=== PATIENT | female | born 1990 | race Caucasian/White ===

== ENCOUNTER 2017-05-08 06:03 | Inpatient (IN) | payer BC, MEDICAID ==
[2017-05-08] MEDS ORDERED: Oxytocin/Lactated Ringers 10 UNIT/1,000 ML BAG IV ONE (08:02)
[2017-05-08] MEDS ORDERED: Nalbuphine 20 MG/1 ML Amp ONE (08:02)
[2017-05-08] MEDS ORDERED: Sodium Chloride 0.9% 10 ML Syringe FLUSH PRN (08:07)
[2017-05-08] MEDS ORDERED: Nalbuphine 20 MG/1 ML Amp IVPUSH ONE (08:14)
[2017-05-08] MEDS ORDERED: Lactated Ringers 1,000 ML IV SCH (08:15)
[2017-05-08] MEDS ORDERED: Oxytocin/Lactated Ringers 10 UNIT/1,000 ML BAG IV SCH (08:15)
--- NOTE | 2017-05-08 08:16 | PCM.LDHP ---
L&D History of Present Illness - General Date of Service: 05/08/17 Admit Problem/Dx: Patient Status Order with Admit Dx/Problem 05/08/17 08:07 Patient Status [ADT] Routine Admission Diagnosis/Problem Admission Diagnosis/Problem 05/08/17 08:11 26 yo at 40 weeks 2 days gestation presents in active labor. Contractions started at 0300. she has had good movement. no vaginal bleeding. no leakage of fluid. uncomplicated care. gbs negative std negative O negative Source of Information: Patient - History of Present Illness Location, : Reports: Abdomen Quality: Reports: Pressure Severity: Moderate Improves with: Reports: None Worsens with: Reports: None Associated Symptoms: Denies: vaginal bleeding, vaginal tissue, vaginal discharge - Related Data Allergies/Adverse Reactions: Allergies Allergy/AdvReac Type Severity Reaction Status Date / Time No Known Allergies Allergy Verified 05/08/17 08:06 Home Medications: Home Meds PNV95/Ferrous Fumarate/FA [ Tablet] 1 tab PO DAILY 05/08/17 [History] Past Medical History Hematologic History: Reports: Anemia - Past Surgical History Other Surgical History Comment: wisdom teeth extraction Social & Family History - Family History Cardiac: Reports: Hypertension Neurological: Reports: CVA Psychiatric: Reports: Depression Endocrine/Metabolic: Reports: Diabetes, type II Oncologic: Reports: Lung - Tobacco Use Smoking Status *Q: Never Smoker - Living Situation & Occupation Living situation: Reports: Single, Other (lives with significant other/father of baby) Occupation: Employed H&P Review of Systems - Review of Systems: Review Of Systems: See Below General: Reports: No Symptoms HEENT: Reports: No Symptoms Pulmonary: Reports: No Symptoms Cardiovascular: Reports: No Symptoms Gastrointestinal: Reports: No Symptoms, Abdominal Pain Genitourinary: Reports: No Symptoms Musculoskeletal: Reports: No Symptoms Skin: Reports: No Symptoms Psychiatric: Reports: No Symptoms Neurological: Reports: No Symptoms Hematologic/Lymphatic: Reports: No Symptoms Immunologic: Reports: No Symptoms L&D Exam - Exam Exam: See Below - Vital Signs Weight: 73.482 kg - OB Specific Contraction Frequency (min): 3 Contraction Intensity: Moderate to Strong Movement: Active Heart Tones: Present Heart Tones per Min: 130 Heart Rate (FHR) Variability: Moderate (6-25 bmp) Presentation: Vertex Estimated Weight: 3250 grams - Fierro Score Fierro Score Cervix Position: Anterior Fierro Score Consistency: Soft Fierro Score Effacement: >80% Fierro Score Dilation: > 5 cm Fierro Score Infant's Station: -1 ,0 Fierro Score Total: 12 - Exam General: Alert, Oriented HEENT: PERRLA Lungs: Normal Respiratory Effort Cardiovascular: Regular Rate, Regular Rhythm GI/Abdominal Exam: Normal Bowel Sounds, Soft, Non-Tender Rectal Exam: Normal Exam, Normal Rectal Tone Genitourinary: Normal external exam Back Exam: Normal Inspection Extremities: Normal Inspection, No Pedal Edema Skin: Warm, Dry, Intact Psychiatric: Alert, Normal Affect, Normal Mood Problem List Initiated/Reviewed/Updated: Yes Orders Last 24hrs: Active Orders 24 hr Category Date Time Status Patient Status [ADT] Routine ADT 05/08/17 08:07 Ordered Activity as Tolerated [RC] PFP Care 05/08/17 08:07 Ordered Communication Order [RC] ASDIRECTED Care 05/08/17 08:07 Ordered Heart Tones [RC] ASDIRECTED Care 05/08/17 08:08 Ordered Notify Provider [RC] PFP Care 05/08/17 08:07 Ordered Notify Provider [RC] PRN Care 05/08/17 08:07 Ordered Peripheral IV Care [RC] . DIRECTED Care 05/08/17 08:08 Ordered Vital Signs [RC] PER UNIT ROUTINE Care 05/08/17 08:07 Ordered Nothing Per Oral Diet [DIET] Diet 05/08/17 Breakfast Ordered Lactated Ringers [Ringers, Lactated] 1,000 ml Med 05/08/17 08:15 Ordered IV ASDIRECTED Lidocaine 1% [Xylocaine 1%] Med 05/08/17 08:07 Once 50 ml INJECT ONETIME ONE Oxytocin/Lactated Ringers [Pitocin in LR 10 Units/1,000 Med 05/08/17 08:15 Ordered ML] 10 unit in 1,000 ml IV .CONTINUOUS Sodium Chloride 0.9% [Saline Flush] Med 05/08/17 08:07 Ordered 10 ml FLUSH ASDIRECTED PRN Electronic Heart Tones Ext w TOCO [WOMSER] Oth 05/08/17 08:07 Ordered Routine Electronic Heart Tones Internal [WOMSER] Per Unit Oth 05/08/17 08:07 Ordered Routine Peripheral IV Insertion Adult [OM.PC] Routine Oth 05/08/17 08:07 Ordered Resuscitation Status Routine Resus Stat 05/08/17 08:07 Ordered Assessment/Plan Comment:: 26 yo at 40 weeks 2 days gestation in active labor Plan: Pt does not desire epidural SROM at 0800 with clear fluid expectant management GBS negative.
[2017-05-08] MEDS ORDERED: Lidocaine 1% 50 ML MDV ONE (08:18)
[2017-05-08] MEDS ORDERED: Witch Hazel Medicated Pads 100/Jar TOP PRN (10:23)
[2017-05-08] MEDS ORDERED: Ibuprofen 600 MG Tab PO PRN (10:23)
[2017-05-08] MEDS ORDERED: Benzocaine/Menthol 20%-0.5% Spray 56 GM Canister TOP PRN (10:24)
[2017-05-08] MEDS ORDERED: Lidocaine 1% 50 ML MDV INJECT ONE (11:00)
[2017-05-08] MEDS ORDERED: Docusate Sodium 100 MG Cap PO PRN (12:09)
--- NOTE | 2017-05-08 12:15 | PCM.SN ---
- Free Text/Narrative Note: 26 yo g2 now P2 delivered viable female at 40 weeks and 2 days gestation at 0935AM on 05/08/17 via spontaneous vaginal delivery over an intact perineum. There was a nuchal cord x 1 which was reduced over the head. Apgars 7 and 9. Mother O negative and GBS negative. Nubain IV anesthesia. and mother in stable condition.
[2017-05-08] MEDS ORDERED: Prenatal Multivitamin with Calcium/Folic Acid/Iron Tab PO SCH (12:30)
[2017-05-09 03:54] VITALS: BP 106/57
--- NOTE | 2017-05-09 07:54 | PCM.DCSUM1 ---
Discharge Summary - Hospital Course Free Text/Narrative:: 26 yo ppd #1. S/p normal vaginal delivery without complications. female (Corie) 7lbs 11 ounces 7 and 9 received rhogam. tolerating diet and activity pain controlled. lochia normal. desires control, was planning for tubal ligation Plan for with iron on discharge for anemia follow up with vimal in 8 weeks. clinic recommended - Discharge Data Discharge Date: 05/09/17 Discharge Disposition: Home, Self-Care 01 Condition: Good - Discharge Diagnosis/Problem(s) (1) Vaginal delivery SNOMED Code(s): 717856604 ICD Code: O80 - ENCOUNTER FOR FULL-TERM UNCOMPLICATED DELIVERY Status: Acute Current Visit: Yes - Patient Instructions Diet: Usual Diet as Tolerated Activity: As Tolerated, No Lifting Over 20 Pounds Driving: May Drive Today Showering/Bathing: May Shower Notify Provider of: Fever, Increased Pain, Swelling and Redness, Drainage, Nausea and/or Vomiting - Discharge Plan Home Medications: Home Meds PNV95/Ferrous Fumarate/FA [ Tablet] 1 tab PO DAILY 05/08/17 [History] Benzocaine/Menthol [Dermoplast [facility] [place]] 0 gm TOP ASDIRECTED PRN #0 canister 05/09/17 [Rx] Docusate Sodium [Colace] 100 mg PO BID PRN #0 cap 05/09/17 [Rx] Ibuprofen [IJD: Ibuprofen] 600 mg PO Q6H PRN #0 tablet 05/09/17 [Rx] Witch Dorothy [Tucks] 1 pad TOP ASDIRECTED PRN #0 pad 05/09/17 [Rx] Referrals: Tatyana Singleton MD [Primary Care Provider] - (8 weeks) - Discharge Summary/Plan Comment DC Time >30 min.: No - General Info Date of Service: 05/09/17 - Patient Data Vitals - Most Recent: Last Vital Signs Temp 36.9 C 05/09/17 03:16 Pulse 67 05/09/17 03:16 Resp 12 05/09/17 03:16 BP 106/57 L 05/09/17 03:16 Pulse Ox 97 05/09/17 03:16 Weight - Most Recent: 73.482 kg I&O - Last 24 hours: Intake & Output 05/08/17 05/09/17 05/09/17 22:59 06:59 14:59 Intake Total 300 Balance 300 Lab Results - Last 24 hrs: Laboratory Results - last 24 hr 05/08/17 05/09/17 Range/Units 13:45 05:35 WBC 12.73 H (3.98-10.04) K/mm3 RBC 4.10 (3.98-5.22) M/mm3 Hgb 10.3 L (11.2-15.7) gm/L Hct 32.5 L (34.1-44.9) % MCV 79.3 L (79.4-94.8) fl MCH 25.1 L (25.6-32.2) pg MCHC 31.7 L (32.2-35.5) g/dl RDW Std Deviation 41.8 (36.4-46.3) fL Plt Count 247 (182-369) K/mm3 MPV 10.3 (9.4-12.3) fl Blood Type O NEGATIVE Gel Antibody Screen Positive Screen 0 ros/5 flds - neg RhIG Candidate? Yes Rhogam Indicated Yes, baby rh pos H Med Orders - Current: Current Medications Benzocaine/Menthol (Dermoplast [facility] [place]) 0 gm TOP ASDIRECTED PRN PRN Reason: perineal discomfort Docusate Sodium (Colace) 100 mg PO BID PRN PRN Reason: Constipation Lactated Ringer's (Ringers, Lactated) 1,000 mls @ 100 mls/hr IV ASDIRECTED KERI Oxytocin/Lactated Ringer's (Pitocin In Lr 10 Units/1,000 Ml) 10 unit in 1,000 mls @ 500 mls/hr IV .CONTINUOUS [facility] Last Admin: 05/08/17 09:37 Dose: 500 mls/hr Ibuprofen (Motrin) 600 mg PO Q6H PRN PRN Reason: Pain Prenat Multivit/Shirt Cleaner/Iron/Folic Ac ( Plus Iron) 1 each PO DAILY [facility] Last Admin: 05/08/17 19:14 Dose: Not Given Sodium Chloride (Saline Flush) 10 ml FLUSH ASDIRECTED PRN PRN Reason: Keep Vein Open Witch Dorothy (Tucks) 1 pad TOP ASDIRECTED PRN PRN Reason: perineal discomfort Discontinued Medications Oxytocin/Lactated Ringer's (Pitocin In Lr 10 Units/1,000 Ml) Confirm Administered Dose 10 unit in 1,000 mls @ as directed IV .STK-MED ONE Stop: 05/08/17 08:03 Last Admin: 05/08/17 08:15 Dose: Not Given Lidocaine HCl (Xylocaine 1%) 50 ml INJECT ONETIME ONE Stop: 05/08/17 11:01 Last Admin: 05/08/17 10:06 Dose: Not Given Lidocaine HCl (Xylocaine 1%) Confirm Administered Dose 50 ml .ROUTE .STK-MED ONE Stop: 05/08/17 08:19 Last Admin: 05/08/17 10:06 Dose: Not Given Nalbuphine HCl (Nubain) Confirm Administered Dose 20 mg .ROUTE .STK-MED ONE Stop: 05/08/17 08:03 Last Admin: 05/08/17 08:15 Dose: Not Given Nalbuphine HCl (Nubain) 10 mg IVPUSH ONETIME ONE Stop: 05/08/17 08:15 Last Admin: 05/08/17 08:08 Dose: 10 mg *Q Meaningful Use (DIS) - VTE *Q VTE Criteria *Q: - Stroke *Q Stroke Criteria *Q: - AMI *Q AMI Criteria *Q: - General Info Date of Service: 05/09/17 - Patient Data Vital Signs - Most Recent: Last Vital Signs Temp 36.9 C 05/09/17 03:16 Pulse 67 05/09/17 03:16 Resp 12 05/09/17 03:16 BP 106/57 L 05/09/17 03:16 Pulse Ox 97 05/09/17 03:16 Weight - Most Recent: 73.482 kg I&O - Last 24 Hours: Intake & Output 05/08/17 05/09/17 05/09/17 22:59 06:59 14:59 Intake Total 300 Balance 300 Lab Results - Last 24 Hours: Laboratory Results - last 24 hr 05/08/17 05/09/17 Range/Units 13:45 05:35 WBC 12.73 H (3.98-10.04) K/mm3 RBC 4.10 (3.98-5.22) M/mm3 Hgb 10.3 L (11.2-15.7) gm/L Hct 32.5 L (34.1-44.9) % MCV 79.3 L (79.4-94.8) fl MCH 25.1 L (25.6-32.2) pg MCHC 31.7 L (32.2-35.5) g/dl RDW Std Deviation 41.8 (36.4-46.3) fL Plt Count 247 (182-369) K/mm3 MPV 10.3 (9.4-12.3) fl Blood Type O NEGATIVE Gel Antibody Screen Positive Screen 0 ros/5 flds - neg RhIG Candidate? Yes Rhogam Indicated Yes, baby rh pos H Med Orders - Current: Current Medications Benzocaine/Menthol (Dermoplast [facility] [place]) 0 gm TOP ASDIRECTED PRN PRN Reason: perineal discomfort Docusate Sodium (Colace) 100 mg PO BID PRN PRN Reason: Constipation Lactated Ringer's (Ringers, Lactated) 1,000 mls @ 100 mls/hr IV ASDIRECTED KERI Oxytocin/Lactated Ringer's (Pitocin In Lr 10 Units/1,000 Ml) 10 unit in 1,000 mls @ 500 mls/hr IV .CONTINUOUS KERI Last Admin: 05/08/17 09:37 Dose: 500 mls/hr Ibuprofen (Motrin) 600 mg PO Q6H PRN PRN Reason: Pain Prenat Multivit/[place]ail/Iron/Folic Ac ( Plus Iron) 1 each PO DAILY KERI Last Admin: 05/08/17 19:14 Dose: Not Given Sodium Chloride (Saline Flush) 10 ml FLUSH ASDIRECTED PRN PRN Reason: Keep Vein Open Lisa De La Cruz (Tucks) 1 pad TOP ASDIRECTED PRN PRN Reason: perineal discomfort Discontinued Medications Oxytocin/Lactated Ringer's (Pitocin In Lr 10 Units/1,000 Ml) Confirm Administered Dose 10 unit in 1,000 mls @ as directed IV .STK-MED ONE Stop: 05/08/17 08:03 Last Admin: 05/08/17 08:15 Dose: Not Given Lidocaine HCl (Xylocaine 1%) 50 ml INJECT ONETIME ONE Stop: 05/08/17 11:01 Last Admin: 05/08/17 10:06 Dose: Not Given Lidocaine HCl (Xylocaine 1%) Confirm Administered Dose 50 ml .ROUTE .STK-MED ONE Stop: 05/08/17 08:19 Last Admin: 05/08/17 10:06 Dose: Not Given Nalbuphine HCl (Nubain) Confirm Administered Dose 20 mg .ROUTE .STK-MED ONE Stop: 05/08/17 08:03 Last Admin: 05/08/17 08:15 Dose: Not Given Nalbuphine HCl (Nubain) 10 mg IVPUSH ONETIME ONE Stop: 05/08/17 08:15 Last Admin: 05/08/17 08:08 Dose: 10 mg - Infant Interaction Disposition, : in Room with Family Interaction: Holding Infant Feeding: Attempted ; Nursed Fair/Poor Support Person: Significant Other - Recovery Exam Fundal Tone: Firm Fundal Level: 1 Fingerbreadths Below Umbilicus Fundal Placement: Midline Lochia Amount: Small Lochia Color: Rubra/Red Episiotomy/Laceration: None Bladder Status: Voiding Urinary Elimination: Voided - Exam General: Alert, Oriented GI/Abdominal Exam: Normal Bowel Sounds Extremities: Normal Inspection Skin: Warm, Dry
== END 2017-05-09 10:15 | disposition home or self-care (01) | DRG 560 ==
LOC: JD.OBCHECK 06:03 → JD.OB 06:08 → JD.OBCHECK 08:07 → JD.MS 09:35 → OBSVTOIN 09:35 → JD.OB 11:13
PROVIDERS: ADMIT Family Medicine; ATTEND Family Medicine
PROC: 10E0XZZ Delivery of Products of Conception, External Approach (ICD-10-PCS; principal; 2017-05-08)
PROC: 10907ZC Drainage of Amniotic Fluid, Therapeutic from Products of Conception, Via Natural or Artificial Opening (ICD-10-PCS; 2017-05-08)
DX: O69.81X0 Labor and delivery complicated by cord around neck, without compression, not applicable or unspecified (principal); O99.02 Anemia complicating childbirth; Z3A.40 40 weeks gestation of pregnancy; Z37.0 Single live birth
CPT/HCPCS: 36415; 85027; 85461; 86850; 86870; 86900; 86901; A9270-GY; J2300; J2590; J2790